=== PATIENT | female | born 1950 | race African-American/Black ===

== ENCOUNTER 2018-09-17 19:01 | Observation (INO) | payer BC, MEDICARE ==
[2018-09-17 19:37] LABS: #Basophils 0.1 thou/uL (0.0-0.2); #Eosinphils 0.1 thou/uL (0.0-0.7); #Lymphocytes 2.8 thou/uL (1.20-3.40); #Monocytes 0.6 thou/uL (0.11-0.59); #Neutrophils 5.4 thou/uL (1.40-6.50); %Basophils 1.2 % (0.0-1.0); %Eosinophils 1.1 % (0.0-10.0); %Lymphocytes 30.8 % (21.0-51.0); %Monocytes 6.4 % (0.0-10.0); %Neutrophils 60.5 % (42.0-75.0); Mean Corpuscular HGB CONC 32.9 g/dL (32.0-36.0); Mean Corpuscular Hemoglobin 32.4 pg (27.0-31.0); Mean Corpuscular Volume 98.6 fL (78.0-98.0); Mean Platelet Volume 8.5 fL (7.4-10.4); Platelet Count 155 thou/uL (130-400); RBC Distribution Width 11.9 % (11.5-14.5); Red Blood Cell (RBC) Count 4.32 mill/uL (4.20-5.40); White Blood Cell (WBC) Count 8.9 thou/uL (4.8-10.8)
[2018-09-17 19:44] LABS: PTT 29.7 SEC (22.9-36.1)
[2018-09-17 19:45] LABS: INR-International Normal Ratio 1.1; Prothrombin Time 13.9 SEC (12.0-14.7)
[2018-09-17 19:57] LABS: ALT (SGPT) 10 U/L (8-55); AST (SGOT) 20 U/L (5-34); Albumin 3.5 g/dL (3.4-4.8); Alkaline Phosphatase 99 U/L (40-150); Anion Gap 13 mmol/L (10-20); BUN (Urea Nitrogen) 8 mg/dL (9.8-20.1); Bilirubin, Total 0.5 mg/dL (0.2-1.2); Calc. Creatinine Clearance 0 mL/min (70-130); Calcium 9.3 mg/dL (7.8-10.44); Carbon Dioxide 26 mmol/L (23-31); Chloride 107 mmol/L (98-107); Estimated GFR-MDRD 70; Globulin 3.7 g/dL (2.4-3.5); Glucose 138 mg/dL (80-115); Potassium 3.5 mmol/L (3.5-5.1); Protein, Total 7.2 g/dL (6.0-8.3); Sodium 142 mmol/L (136-145)
[2018-09-17] MEDS ORDERED: Ondansetron ODT 4 MG TAB PO PRN (21:03)
[2018-09-17 22:39] VITALS: BMI 16.5
[2018-09-18] MEDS: Morphine 2 MG/ML SYRINGE SLOW IVP PRN ×2 (00:53→05:18)
[2018-09-18] MEDS: Ondansetron PF 4 MG/2 ML Vial IVP PRN ×2 (00:59→05:17)
[2018-09-18 07:12] LABS: #Basophils 0.1 thou/uL (0.0-0.2); #Eosinphils 0.1 thou/uL (0.0-0.7); #Lymphocytes 2.7 thou/uL (1.20-3.40); #Neutrophils 6.4 thou/uL (1.40-6.50); %Basophils 0.7 % (0.0-1.0); %Eosinophils 1.2 % (0.0-10.0); %Lymphocytes 26.2 % (21.0-51.0); %Monocytes 9.8 % (0.0-10.0); %Neutrophils 62.1 % (42.0-75.0); Hemoglobin 13.4 g/dL (12.0-16.0); Mean Corpuscular HGB CONC 32.8 g/dL (32.0-36.0); Mean Corpuscular Hemoglobin 32.9 pg (27.0-31.0); Mean Platelet Volume 9.4 fL (7.4-10.4); Platelet Count 154 thou/uL (130-400); Red Blood Cell (RBC) Count 4.07 mill/uL (4.20-5.40); White Blood Cell (WBC) Count 10.4 thou/uL (4.8-10.8)
--- NOTE | 2018-09-18 07:26 | HP ---
PRIMARY CARE PHYSICIAN: Dr. Peter Christina CODE STATUS: Full code. TIME OF EVALUATION: 8 p.m. CHIEF COMPLAINT: Right hand pain. HISTORY OF PRESENT ILLNESS: This is a 67-year-old female patient, with past medical history of primary biliary cirrhosis and hyperlipidemia, came to the hospital after having a snake bite in the right fourth finger. The patient was in the garden and she felt a bite and she came back to check on it. She saw a Copperhead that was about 4 to 5 inches long. She was able to kill the snake and went to [place] where she got 4 units of CroFab. The patient had localized symptoms reported as swelling, tenderness, redness, symptoms were extending proximally from the finger up to the forearm. Medication had improved with the symptoms. By the time of my examination, the patient has improved. There are no systemic symptoms. REVIEW OF SYSTEMS: CONSTITUTIONAL: No fever, chills, or generalized weakness. RESPIRATORY: No cough, sputum production, or shortness of breath. CARDIOVASCULAR: No chest pain or palpitation. GASTROINTESTINAL: No nausea, no vomiting, diarrhea, or abdominal pain. PSYCHOLOGY PROFESSOR: No dizziness, headache, or feeling lightheaded. GENITOURINARY: No burning on urination. EXTREMITIES: No leg swelling. The right arm swelling and tenderness as described in HPI due to the snake bite. All other systems were reviewed and negative except for the findings mentioned above. PAST MEDICAL HISTORY: As mentioned in the HPI. FAMILY HISTORY: Reviewed and noncontributory for current presentation. PAST SURGICAL HISTORY: Right shoulder surgery. SOCIAL HISTORY: No alcohol, no drug use. The patient currently uses tobacco, smokes cigarettes more than half a pack per day. Lives at home with family. KNOWN ALLERGIES: No known drug allergies. PHYSICAL EXAMINATION: VITAL SIGNS: On presentation, blood pressure 176/95 with heart rate 87, respiratory rate was 18, temperature 98.5, pain was 0, and oxygen saturation was 96% on room air. GENERAL APPEARANCE: The patient is alert, oriented, not in acute distress. HEENT: Eyes; normal conjunctivae. Moist oral mucosa. Anicteric. No JVD. RESPIRATORY: Bilateral air entry. No rales. No wheezes. Symmetric expansion. CARDIOVASCULAR: Normal rate. Regular rhythm. No murmurs. No gallop. No edema. ABDOMEN: Soft. Normal bowel sounds. MUSCULOSKELETAL: Baseline range of motion and strength. No tenderness except for the right upper arm. The patient has redness, tenderness, swelling, and decreased range of motion in the right hand and forearm. Symptoms are not extending when compared with previous physical exam from previous providers. Peripheral pulses are present. Capillary refill seems to be intact. NEUROLOGICAL: No evidence of any new focal weakness. Baseline speech. Cranial nerves seems to be intact. PSYCHIATRIC: The patient is in good mood. No anxiety. Optimal judgment. IMAGING STUDIES: Normal sinus rhythm with sinus arrhythmia, possible left atrial enlargement and incomplete RBBB, ventricular rate 69, AZ 142, QRS 102, QT corrected 421. LABORATORY DATA: Reviewed. The patient has white count 8.9, hemoglobin 14, MCV 98.6, platelet count 156. Coagulation; PT 13.9, INR 1.1, PTT 29.7. Fibrinogen 311. Chemistry; sodium 142, potassium 3.5, chloride 107, carbon dioxide 26, anion gap 13, BUN 8, creatinine 0.82, GFR 70, glucose 138, calcium 9.3, total bilirubin 0.5, AST 20, ALT 10, alkaline phosphatase 99. Serum total protein 7.2, albumin 3.5, globulin 3.7, albumin globulin ratio is 0.9. ASSESSMENT AND PLAN: The patient will be placed in the hospital with following medical problems. 1. Copperhead snake bite on the right fourth finger. The patient received CroFab x4 amps prior to transfer. Symptoms have improved. Coagulation is normal. No further pain. We will monitor and treat symptomatically and accordingly to the patient's progress, as of now she is improving. 2. Hypercholesterolemia, we will reconcile home medications. Low-cholesterol diet is advised. 3. History of biliary cirrhosis. This is chronic, stable. 4. Deep venous thrombosis prophylaxis. Job ID: [id number]
[2018-09-18 07:30] LABS: Anion Gap 12 mmol/L (10-20); BUN (Urea Nitrogen) 8 mg/dL (9.8-20.1); Calc. Creatinine Clearance 50 mL/min (70-130); Calcium 9.1 mg/dL (7.8-10.44); Carbon Dioxide 24 mmol/L (23-31); Chloride 105 mmol/L (98-107); Estimated GFR-MDRD Greater than 90; Glucose 94 mg/dL (80-115); Potassium 3.9 mmol/L (3.5-5.1); Sodium 137 mmol/L (136-145)
[2018-09-18 12:08] VITALS: BP 108/65; TEMP 98.1
--- NOTE | 2018-09-19 02:49 | DIS ---
DATE OF ADMISSION: 09/17/2018 DATE OF DISCHARGE: 09/18/2018 ALLERGIES: NO KNOWN DRUG ALLERGIES. CHIEF COMPLAINT: Right hand pain, secondary to snake bite of right fourth finger. FINAL DIAGNOSES: 1. Pit viper envenomation, status post four vials of CroFab. 2. Primary biliary cirrhosis. 3. Hyperlipidemia. PROCEDURES PERFORMED: None. LABORATORY RESULTS: White blood cell count 10.4, hemoglobin 13.4, hematocrit 40.8, MCV 100, platelet count is 154. PT 13.9, INR 1.1, APTT 29.7, fibrinogen 311. Sodium 137, potassium 3.9, chloride 105, carbon dioxide 24, anion gap 12, creatinine 0.76, GFR greater than 90. AST, ALT, and alkaline phosphatase all within normal limits. Albumin 3.5. IMAGING RESULTS: None. VITAL SIGNS: Blood pressure 108/65, pulse is 66, O2 saturation is 93% on room air, and temperature 98.1. HOSPITAL COURSE: The patient is a very pleasant 67-year-old female with past medical history significant for primary biliary cirrhosis and hyperlipidemia, who presented to the ED after suffering from a snake bite while she was working in the garden. She states that a very small copperhead snake that was maybe only 5 inches long and maybe the width of her pinky finger, bit on her right fourth finger. She went inside and washed the bite with soap and water, however, she continued to have redness, swelling and pain that started to extend proximally from the finger up to the forearm. She presented to the [place] [facility] and was administered 4 units of CroFab. She was transferred to our facility for higher level of care. By the time of her arrival, her symptoms seem to already be improving. She rested well overnight. Today, she states that her pain is much improved. Her swelling is also much improved. She does have some mildly tender lymph node in the proximal elbow, as well as the right axillary area that are mildly swollen but already less tender than they were yesterday. The patient has no chest pain or shortness of breath. She has no nausea or vomiting. Her appetite is good. She has no complaints at this time. PHYSICAL EXAMINATION: GENERAL: The patient is a thin, well-appearing female, who appears her stated age, resting comfortably in bed. HEAD: Atraumatic, normocephalic. Mucous membranes are moist. Extraocular movements intact. NECK: Supple. No lymphadenopathy. No carotid bruits. Trachea is midline. No JVD. CV: S1 and S2. Regular rate and rhythm. No appreciable murmurs, rubs, or gallops. LUNGS: Regular respiratory rate and pattern. Clear to auscultation bilaterally. ABDOMEN: Soft. Positive bowel sounds. Nontender. No organomegaly. EXTREMITIES: Lower extremities are warm and well perfused. No edema. +2 DP pulses laterally. Her right upper extremity shows mild edema of the hand just proximal to the wrist. The previous line of demarcation, which I assume was delineating. Swelling or erythema is completely resolved. There is a puncture wound from the snake bite on the right fourth finger, however, no extending erythema or signs of infection. CONDITION AT DISCHARGE: Stable. DISCHARGE MEDICATIONS: The patient will continue her home medications which include: 1. Atorvastatin 20 mg daily. 2. Lexapro 50 mg p.o. daily. 3. Ursodiol 300 mg p.o. b.i.d. DISCHARGE DISPOSITION: Home. PLAN: The patient will continue p.r.n. [id number] Tylenol or ibuprofen for pain. Her tetanus shot was updated at the [facility]. She will continue to monitor for signs of infection, but the patient is much improved today. She will be discharged home in good condition. Care of this patient was discussed with Dr. Hayden, who agrees with the above. Job ID: [id number] [id number]
== END 2018-09-18 12:39 | disposition home or self-care (01) ==
LOC: ERS 19:01 → T4-B 20:15
PROVIDERS: ADMIT Hospitalist; ATTEND Hospitalist
DX: T63.061A Toxic effect of venom of other North and South American snake, accidental (unintentional), initial encounter (principal); M79.641 Pain in right hand; F17.210 Nicotine dependence, cigarettes, uncomplicated; E78.00 Pure hypercholesterolemia, unspecified; E78.5 Hyperlipidemia, unspecified; K74.3 Primary biliary cirrhosis; Z79.899 Other long term (current) drug therapy
CPT/HCPCS: 80048; 80053; 85025 ×2; 85384; 85610; 85730; 96374; 96375; 96376; 99285; G0378 ×2; 36415; J2270; J2405